=== PATIENT | male | born 1930 | race Caucasian/White ===

== ENCOUNTER 2019-12-06 23:06 | Emergency (ER) | payer MEDICARE, OTHER ==
[~2019-12-06] VITALS: Ht 182.9 cm; Wt 121.4 kg
[~2019-12-06 23:06] MED LIST: AKWA TEARS 15 M15 ML OP; ARTIFICIAL TEAR15 M7 OP; ASPI325T6 PO; ASPIRIN E.C. 8181 MG PO; CLEOCIN HCL300 MG PO; COLACE 100100 MG/CAP PO; COMBIVENT INH14.7 GM IH; COUMADIN 22.5 MG/TAB PO; COUMADIN 2MG2 MG/TAB PO; COUMADIN 3MG3 MG/TAB PO; COUMADIN 5MG5 MG/TAB PO; COUMADIN4 MG PO; COZAAR; COZAAR 25MG25 MG/TAB PO; CRESTOR; DIFLUCAN 100MG100 MG PO; DIGITEK0.25 MG PO; DULCOLAX S10 MG/SUPP RC; FERROUS SU325 MG/TAB PO; FLOMAX 0.40.4 MG/CAP PO; GENTLE LAXATIVE10 MG RC; HEPARIN LOCK FLU5 M1 IV; HYDROCORTISO28.35 G1 TP; HYDROCORTISONE30 G3 TP; HYZAAR 50-12.1 UDTAB PO; IPRATROPIUM BROM3 M1 IH; K-DUR 2020 MEQ PO; K-DUR20 MEQ PO; KLOR-CON 1010 MEQ PO; KLOR-CON M2020 MEQ PO; LANOXIN 0.25M0.25 MG PO; LANOXIN0.5 MG PO; LASIX 40MG TABL40 MG PO; LASIX 80MG TABL80 MG PO; LEVAQUIN 5500 MG/TA1 PO; LOPRESSOR 550 MG/TAB PO; LOVENOX 100100 MG/ML SQ; LOVENOX 3030 MG/0.3 SQ; LOVENOX 8080 MG/0.8 SQ; MAG-OX 400400 MG/TAB PO; MEDROL 4MG DOSPA4 MG PO; MILK OF MA400 MG/52 PO; MIRALAX PA17 GM/Dose PO; MUCINEX 60600 MG/TA1 PO; MUCOMYST 20200 MG/M1 IH; MYLANTA PO; NEXIUM40 MG PO; NITROSTAT0.4 MG/TAB SL; NORCO 325 MG-51 TAB PO; NORVASC; NORVASC 10MG10 MG PO; NORVASC 5MG5 MG/TAB PO; NS INT FLUSH 1010 ML IV; PERFOROMIS20 MCG/2 M IH; PLAVIX 75MG TAB75 MG PO; PRAVACHOL 40MG40 MG PO; PREDNISONE20 MG PO; PROTONIX 40MG T40 MG PO; RT SPIRIVA18 MCG IH; TAMIFLU 75MG75 MG PO; TOPROL XL 25MG25 MG PO; TYLENOL 325MG325 MG PO; TYLENOL SU650 MG/SUP RC
[2019-12-06 23:10] VITALS: TEMP 98.1
[2019-12-06 23:36] LABS: BASO # 0.1 (0.0-0.2); BASO % 0.6 % (0.0-2.0); EOS # 0.6 (0.0-0.7); EOS % 5.5 % (0-4.0); GRAN # 8.3 (1.4-6.5); GRAN % 76.7 % (42.2-75.2); LYMPH # 0.6 (1.2-3.4); LYMPH % 5.8 % (20.0-51.0); MEAN CELL VOLUME 85 fl (80.0-100.0); MEAN CORPUSCULAR HGB CONC 29 g/dl (33.0-37.0); MEAN PLATELET VOLUME 10.2 fl (7.4-10.4); MONO # 1.2 (0.1-0.6); MONO % 10.9 % (1.7-9.3); PLATELET COUNT 350 K/mm3 (130-400); RED BLOOD COUNT 3.62 M/mm3 (4.20-5.60); REDCELL DISTRIBUTION WIDTH-CV 19.6 % (11.5-14.5)
[2019-12-06 23:40] LABS: HEMATOCRIT 30.6 % (42.0-52.0); HEMOGLOBIN 8.9 g/dl (13.5-18.0); MEAN CORPUSCULAR HEMOGLOBIN 25 pg (27.0-31.0)
[2019-12-06 23:42] LABS: INR 3.8 (0.8-3.0); PROTHROMBIN TIME 43.4 SECONDS (9.7-12.8)
[2019-12-06 23:46] LABS: ALBUMIN 3.8 gm/dL (3.5-5.0); BILIRUBIN,TOTAL 0.7 mg/dL (0.0-1.0); CALCIUM 8.9 mg/dL (8.4-10.2); CREATININE, serum 1.88 (0.66-1.25); POTASSIUM 4.2 mmol/L (3.4-5.0); TOTAL PROTEIN 7.6 gm/dL (6.4-8.2)
[2019-12-06 23:58] LABS: TROPONIN-I 0.018 ng/mL (0.000-0.035)
[2019-12-07 02:53] VITALS: BP 164/80; PULSE 108
== END 2019-12-07 02:45 | disposition short-term general hospital (02) ==
LOC: COL.ER 23:06
PROVIDERS: Emergency Medicine
DX: J98.01 Acute bronchospasm (principal); J44.9 Chronic obstructive pulmonary disease, unspecified; E78.5 Hyperlipidemia, unspecified; K21.9 Gastro-esophageal reflux disease without esophagitis; I48.91 Unspecified atrial fibrillation; I11.0 Hypertensive heart disease with heart failure; I50.9 Heart failure, unspecified; I25.10 Atherosclerotic heart disease of native coronary artery without angina pectoris; Z79.01 Long term (current) use of anticoagulants; Z79.02 Long term (current) use of antithrombotics/antiplatelets; Z87.891 Personal history of nicotine dependence; Z79.82 Long term (current) use of aspirin; Z86.73 Personal history of transient ischemic attack (TIA), and cerebral infarction without residual deficits
CPT/HCPCS: J1940

== ENCOUNTER 2020-02-23 06:33 | Inpatient (IN) | payer MEDICARE, OTHER ==
[~2020-02-23] VITALS: Ht 182.9 cm; Wt 188.9 kg
[2020-02-23] VITALS (318 sets, daily range): BP systolic 98–122; BP diastolic 52–76; PULSE 42–108; TEMP 97.7–97.9; O2SAT 75–100
[~2020-02-23 06:33] MED LIST changes: +TOPROL XL100 MG PO
[2020-02-23 06:56] LABS: ARTERIAL BLD GAS TCO2 CT 23.3; ARTERIAL BLOOD GAS BASE EXCESS -3.5 (-2-2); ARTERIAL BLOOD GAS PCO2 41.8 mmHg (35-45); ARTERIAL BLOOD GAS pH 7.34 (7.35-7.45)
[2020-02-23 06:57] LABS: ARTERIAL BLOOD GAS PO2 146.8 mmHg (80-100)
[2020-02-23 07:00] LABS: MEAN CELL VOLUME 90 fl (80.0-100.0); MEAN CORPUSCULAR HGB CONC 28 g/dl (33.0-37.0); MEAN PLATELET VOLUME 10.4 fl (7.4-10.4); PLATELET COUNT 459 K/mm3 (130-400); RED BLOOD COUNT 3.02 M/mm3 (4.20-5.60); REDCELL DISTRIBUTION WIDTH-CV 19.4 % (11.5-14.5)
[2020-02-23 07:02] LABS: INR 3.1 (0.8-3.0); PROTHROMBIN TIME 35.1 SECONDS (9.7-12.8)
[2020-02-23 07:04] LABS: PARTIAL THROMBOPLASTIN TIME 37.9 SECONDS (26.0-37.0)
[2020-02-23] MEDS ORDERED: LIPITOR20 MG PO (07:16)
[2020-02-23] MEDS ORDERED: NEURONTIN100 MG/CAP PO (07:18)
[2020-02-23 07:22] LABS: HEMATOCRIT 27.1 % (42.0-52.0); HEMOGLOBIN 7.5 g/dl (13.5-18.0); MEAN CORPUSCULAR HEMOGLOBIN 25 pg (27.0-31.0)
[2020-02-23 07:32] LABS: BAND 3 % (0-10); LYMPHOCYTE 11 % (20.0-51.0); NEUTROPHILS 82 % (42.0-75.2)
[2020-02-23 07:33] LABS: ANISOCYTOSIS 1+; HYPOCHROMIA 1+; PLATELET ESTIMATE NORMAL (NORMAL)
[2020-02-23 08:31] LABS: ALBUMIN 3.8 gm/dL (3.5-5.0); BILIRUBIN,TOTAL 0.5 mg/dL (0.0-1.0); CALCIUM 8.5 mg/dL (8.4-10.2); CREATININE, serum 4.44 (0.66-1.25); TOTAL PROTEIN 7.9 gm/dL (6.4-8.2)
[2020-02-23] MEDS ORDERED: ALDACTONE 25MG25 M1 PO (08:34)
[2020-02-23] MEDS ORDERED: BUMEX2 MG PO (08:35)
[2020-02-23] MEDS ORDERED: MELATONIN5 M1 SL (08:36)
[2020-02-23] MEDS ORDERED: FERROUSAL325 MG PO (08:37)
[2020-02-23] MEDS ORDERED: VOLTAREN GEL 1%1 TU TP (08:41)
[2020-02-23] MEDS ORDERED: ZYLOPRIM 100MG100 MG PO (08:42)
[2020-02-23] MEDS ORDERED: IMDUR 30MG30 MG/TAB PO (08:42)
[2020-02-23 08:51] LABS: CREATINE KINASE < 20 U/L (55-170); LIPASE 487 U/L (23-300)
[2020-02-23 08:52] LABS: TROPONIN-I 0.039 ng/mL (0.000-0.035)
--- NOTE | 2020-02-23 10:00 | NUR ---
Report received from Isabell ANDRADE in ED. 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
[2020-02-23 10:08] LABS: IRON,SERUM 23 ug/dL (35-150)
[2020-02-23 10:17] LABS: TOTAL IRON BINDING CAPACITY 360 ug/dL (261-462)
--- NOTE | 2020-02-23 10:30 | NUR ---
Report received from [facility] laboratory technician RN. Patient to the floor via stretcher, IV infusing, BIPAP in place, egan draining to gravity.
--- NOTE | 2020-02-23 13:00 | NUR ---
1230-NOTICED PATIENT HAD INCREASED ECTOPY, ENTERED ROOM TO DISCONTINUE ISOPREL 1247-CALLED DR. LANDA TO NOTIFY OF TACHYCARDIA AND BRADYCARDIA CHANGES 1251-CALLED DR. ISSA ABOUT HEART RATE AND RHYTHM CHANGES, GOT A STAT EKG PATIENT ALERT AND ABLE TO FOLLOW COMMANDS THROUGOUT EPISODE. HEART RATE IRREGULAR AND IN THE 80s AT THIS TIME. DIALYSIS STOPPED WELL.
--- NOTE | 2020-02-23 13:30 | NUR ---
Discussed plan of care with Lucia. Requested transfer to if possible, especially since he normally doctors there. Notified Dr. Medrano and Dr. Polk of request.
[2020-02-23 15:18] LABS: COLLECTION METHOD CATHETER
[2020-02-23 15:49] LABS: AMORPHOUS CRYSTAL Present /uL; HYALINE CAST >12 /lpf; MUCOUS Present /lpf; PH 5 (5-8); SQUAMOUS EPITHELIAL None Seen /hpf; URINE APPEARANCE Hazy; URINE BACTERIA Rare /hpf; URINE BILIRUBIN Negative (NEGATIVE); URINE BLOOD 2+ (NEGATIVE); URINE COLOR Yellow; URINE GLUCOSE Negative (NEGATIVE); URINE KETONE Negative (NEGATIVE); URINE LEUKOCYTE ESTERASE Negative (NEGATIVE); URINE NITRATE Negative (NEGATIVE); URINE PROTEIN(semi-quant) 1+ (NEGATIVE); URINE RBC >50 /hpf; URINE UROBILINOGEN Negative (NEGATIVE)
[2020-02-23 17:28] LABS: INR 2.4 (0.8-3.0); PROTHROMBIN TIME 26.6 SECONDS (9.7-12.8)
[2020-02-23 17:33] LABS: ALBUMIN 3.3 gm/dL (3.5-5.0); BILIRUBIN,TOTAL 0.5 mg/dL (0.0-1.0); CALCIUM 8.1 mg/dL (8.4-10.2); CREATININE, serum 3.01 (0.66-1.25); POTASSIUM 5.4 mmol/L (3.4-5.0); TOTAL PROTEIN 6.9 gm/dL (6.4-8.2)
[2020-02-23 17:44] LABS: TROPONIN-I 0.03 ng/mL (0.000-0.035)
--- NOTE | 2020-02-23 18:53 | NUR ---
1630- Dr. Polk in with patient, discussing treatment plan with patient and , Lucia 1700- Patient starts to have pauses and bradycardia again, Dr. Polk at bedside. Isuprel restarted 171- Dr. Medrano called this RN, gave update and stated he would talk to Dr. Polk personally. 171- Dr. Badillo discussing treatment plan with Dr. Polk. Decision made to try to transfer patient to [facility].
--- NOTE | 2020-02-23 20:39 | NUR ---
Report called to nurse Campos at 2027. Notified of transfer at 2036.
--- NOTE | 2020-02-23 21:09 | NUR ---
Patient transferred to EMS stretcher. Report provided by Miriam lopez RN, who was at bedside during transfer. Vitals stable, patient doing well; no complaints of pain or discomfort. Patient left ICU at 2109.
[2020-02-23 23:06] LABS: HEPATITIS B SURFACE ANTIGEN Negative (Negative)
[2020-02-23 23:07] LABS: HEPATITIS B SURFACE ANTIBODY <2.0 (()); HEPATITIS C VIRUS ANTIBODY Negative (Negative)
[2020-02-24 00:22] LABS: TRANSFERRIN 255 mg/dL (163-344)
== END 2020-02-23 21:12 | disposition short-term general hospital (02) | DRG 640 ==
LOC: COL.ER 06:33 → ICU 09:13
PROVIDERS: Emergency Medicine; Family Medicine; ADMIT Internal Medicine Nephrology
PROC: 5A1D70Z Performance of Urinary Filtration, Intermittent, Less than 6 Hours Per Day (ICD-10-PCS; principal; 2020-02-23)
PROC: 06HY33Z Insertion of Infusion Device into Lower Vein, Percutaneous Approach (ICD-10-PCS; 2020-02-23)
DX: E87.5 Hyperkalemia (principal); I50.23 Acute on chronic systolic (congestive) heart failure; I21.A1 Myocardial infarction type 2; N17.9 Acute kidney failure, unspecified; I13.0 Hypertensive heart and chronic kidney disease with heart failure and stage 1 through stage 4 chronic kidney disease, or unspecified chronic kidney disease; I48.91 Unspecified atrial fibrillation; I25.10 Atherosclerotic heart disease of native coronary artery without angina pectoris; E78.5 Hyperlipidemia, unspecified; N18.3 Chronic kidney disease, stage 3 (moderate); D63.1 Anemia in chronic kidney disease; T50.0X5A Adverse effect of mineralocorticoids and their antagonists, initial encounter; J44.9 Chronic obstructive pulmonary disease, unspecified; Z79.01 Long term (current) use of anticoagulants; Z87.891 Personal history of nicotine dependence
CPT/HCPCS: J0461; J0610; J1644; J3430; J7030; J7060